=== PATIENT | female | born 1980 | race Caucasian/White ===

== ENCOUNTER 2016-08-14 18:35 | Emergency (ER) | payer BC, OTHER ==
[~2016-08-14] VITALS: Ht 160 cm; Wt 55.8 kg
[~2016-08-14 18:35] MED LIST: PRLSR20 PO; SUCR1TAB29 PO
[2016-08-14 18:38] VITALS: Ht 160 cm; Wt 55.8 kg
[2016-08-14] MEDS ORDERED: ONDANSETRON INJ 2 MG/ML 2 ML VIAL IV STA (19:12)
[2016-08-14] MEDS ORDERED: MoRPHine SULFATE 4 MG/ML 1 ML CARP\\VIAL IV STA (19:12)
[2016-08-14] MEDS ORDERED: SODIUM CHLORIDE 0.9% 1000ML 1,000 ML IV STA ×2 (19:12)
[2016-08-14] MEDS ORDERED: MoRPHine SULFATE 4 MG/ML 1 ML CARP\\VIAL IV PRN (19:15)
[2016-08-14 19:30] LABS: BASO % 0.3 %; BASO ABS # 0.03 K/uL (0-0.2); COMPLETE YES; EOS % 0.8 %; HEMATOCRIT 42.2 % (37-47); IG% 0.2 %; LYMPH % 29.1 %; LYMPH ABS # 2.79 K/uL (1.2-3.4); MEAN CELL VOLUME 83.9 fL (80-100); MEAN CORPUSCULAR HEMOGLOBIN 28.4 pg (25-34); MEAN CORPUSCULAR HGB CONC 33.9 g/dl (32-36); MEAN PLATELET VOLUME 11.7 fL (7.4-10.4); NEUT % 64.6 %; PLATELET COUNT 237 K/uL (130-400); RED BLOOD COUNT 5.03 M/uL (4.2-5.4)
[2016-08-14] MEDS ORDERED: OPTIRAY 320 IV PRN (19:30)
[2016-08-14 19:38] LABS: BUN/CREATININE RATIO 8.8 (10-20); CALCIUM 9.5 mg/dl (8.5-10.1); CREATININE 0.83 mg/dl (0.60-1.20); POTASSIUM 3.5 mmol/L (3.5-5.1)
[2016-08-14 19:39] LABS: PREG INTERNAL NEGATIVE QC NEG CLEAR BACKGROUND; PREG INTERNAL POSITIVE QC POS CONTROL LINE
[2016-08-14] MEDS ORDERED: IBUP-1050 PO (19:39)
[2016-08-14 19:41] LABS: ALB/GLOB RATIO 1.2 (0.9-2)
[2016-08-14 19:43] LABS: URINE APPEARANCE CLEAR (CLEAR); URINE BILIRUBIN NEG (NEG); URINE COLOR YELLOW; URINE NITRITE NEG (NEG); URINE SPECIFIC GRAVITY 1.006 (1.000-1.030); UROBILINOGEN NEG (NEG)
[2016-08-14 19:47] LABS: MANUAL MICROSCOPIC REQUIRED? NO; REVIEW REQ? NO
--- NOTE | 2016-08-14 20:10 | DIAGNOSTIC IMAGING REPORT ---
ABDOMEN AND PELVIS CT WITH IV CONTRAST CT DOSE: 275.00 mGy.cm HISTORY: EVAL R ABD PAIN TECHNIQUE: Multiaxial CT images of the abdomen and pelvis were performed following the use of intravenous contrast. COMPARISON STUDY: None. FINDINGS: The lung bases are clear. The liver, spleen, gallbladder, pancreas, kidneys, and adrenal glands are within normal limits. No bowel wall thickening or obstruction. Pelvis confirms presence of a retroflexed uterus. Several right ovarian cyst measuring 2.0 and 2.8 cm. There is a 1.9 cm left ovarian cyst. Bladder is midline. There is trace amount of free fluid surrounding the right ovary. IMPRESSION: 1. Nonobstructive bowel pattern 2. The appendix is identified in part and appears to be unremarkable. 3. Multicystic right ovary with dimensions as noted with a single cyst of the left ovary. Trace amount of free fluid surrounding the right ovary which may indicate partial cyst rupture. Electronically signed by: Scar Vera M.D. 08/14/2016 8:08 PM Dictated Date/Time: 08/14/2016 8:04 PM
--- NOTE | 2016-08-14 20:49 | EMERGENCY ROOM VISIT NOTE ---
History First contact with patient: 18:42 Chief Complaint: ABDOMINAL PAIN Stated Complaint: ABD PAIN Nursing Triage Summary: Patient c/o right side of abdomen and back yesterday. Pt denies urinary symtoms. Associates nausea and headache. Denies v/d History of Present Illness Patient is a 36-year-old white female who presents emergency department for evaluation of right-sided abdominal pain. She states that she noticed the pain yesterday. It was located low in the right lower quadrant/groin area. The pain was intermittent. It is better when she was laying and sitting still and worse when she was standing and walking. She states that the pain was worse last night, felt better when she woke up this morning. She tried to go about her normal activities throughout the day, but the pain again returned. She states she also began to wrap around more to her right flank. She then noted associated nausea and headache. She does have a history of ovarian cysts and states that initially she thought that she had another cyst. She did take some ibuprofen which helped with her headache. She denies any urinary symptoms. Bowel movements have been regular. Her last menstrual period was 2 weeks ago. She does also note some rectal pressure 2 days ago which has improved. She presently rates her discomfort a 4/10. There is a family history of gallbladder disease and kidney stones. She still has her appendix. Review of Systems Review of systems as per HPI. All other systems reviewed were negative. 10 systems reviewed. Past Medical/Surgical History Medical Problems: (1) Acid reflux (2) Ovarian cyst Surgical Problems: (1) H/O breast implant (2) History of tonsillectomy (3) Hx of wisdom tooth extraction Electronic medical records are reviewed and summarized as above/below. See Problem List. Social History Smoking Status: Never Smoker Alcohol Use: none Marital Status: Housing Status: lives with family Occupation Status: unemployed Current/Historical Medications Scheduled PRN Ibuprofen (Advil), 400 MG PO Q6 PRN for Pain Allergies Coded Allergies: Penicillins (Verified Adverse Reaction, N/V, 03/08/12) Physical Exam Vital Signs Date Time Temp Pulse Resp B/P Pulse Ox O2 Delivery O2 Flow Rate FiO2 08/14/16 20:54 36.7 82 16 114/77 99 08/14/16 20:32 82 16 114/77 99 Room Air 08/14/16 19:28 81 16 119/74 97 Room Air 08/14/16 18:38 36.7 79 16 122/82 98 Room Air Physical Exam CONSTITUTIONAL: Patient is a well-appearing 36-year-old white female who is awake and alert and in no acute distress. EYES: Pupils equal, round, reactive to light and accommodation. EOMs intact without nystagmus. Sclera are anicteric. ENT: Tympanic membranes intact, with normal landmarks. External canals are clear. Oral and nasopharynx are clear. Mucous membranes are moist, no lesions , tongue and gums appear normal. NECK: Supple without lymphadenopathy. No thyromegaly. No meningeal signs. Full active range of motion without discomfort. CARDIOVASCULAR: Regular rate and rhythm, with normal S1 and S2, no murmur or gallop or rub is heard. No carotid bruits auscultated. No JVD. Peripheral pulses easily palpable. RESPIRATORY: Breath sounds equal and clear to auscultation without wheezes, rales, or rhonchi heard. Full and equal chest expansion without accessory muscle use or retractions. ABDOMEN: Bowel sounds are present. Abdomen is soft, nondistended, tender to percussion and palpation in the right lower quadrant, without guarding, rebound or rigidity. INTEGUMENTARY: No lesions or rash, normal skin turgor. LYMPH: No lymphadenopathy. Medical Decision & Procedures ER Provider Diagnostic Interpretation: ABDOMEN AND PELVIS CT WITH IV CONTRAST CT DOSE: 275.00 mGy.cm HISTORY: EVAL R ABD PAIN TECHNIQUE: Multiaxial CT images of the abdomen and pelvis were performed following the use of intravenous contrast. COMPARISON STUDY: None. FINDINGS: The lung bases are clear. The liver, spleen, gallbladder, pancreas, kidneys, and adrenal glands are within normal limits. No bowel wall thickening or obstruction. Pelvis confirms presence of a retroflexed uterus. Several right ovarian cyst measuring 2.0 and 2.8 cm. There is a 1.9 cm left ovarian cyst. Bladder is midline. There is trace amount of free fluid surrounding the right ovary. IMPRESSION: 1. Nonobstructive bowel pattern 2. The appendix is identified in part and appears to be unremarkable. 3. Multicystic right ovary with dimensions as noted with a single cyst of the left ovary. Trace amount of free fluid surrounding the right ovary which may indicate partial cyst rupture. Laboratory Results 08/14/16 18:50 Red Blood Count 5.03, Mean Corpuscular Volume 83.9, Mean Corpuscular Hemoglobin 28.4, Mean Corpuscular Hemoglobin Concent 33.9, Mean Platelet Volume 11.7, Neutrophils (%) (Auto) 64.6, Lymphocytes (%) (Auto) 29.1, Monocytes (%) (Auto) 5.0, Eosinophils (%) (Auto) 0.8, Basophils (%) (Auto) 0.3, Neutrophils # (Auto) 6.20, Lymphocytes # (Auto) 2.79, Monocytes # (Auto) 0.48, Eosinophils # (Auto) 0.08, Basophils # (Auto) 0.03 08/14/16 18:50 Test 08/14/16 18:50 White Blood Count 9.60 K/uL (4.8-10.8) Red Blood Count 5.03 M/uL (4.2-5.4) Hemoglobin 14.3 g/dL (12.0-16.0) Hematocrit 42.2 % (37-47) Mean Corpuscular Volume 83.9 fL (80-100) Mean Corpuscular Hemoglobin 28.4 pg (25-34) Mean Corpuscular Hemoglobin Concent 33.9 g/dl (32-36) Platelet Count 237 K/uL (130-400) Mean Platelet Volume 11.7 fL (7.4-10.4) Neutrophils (%) (Auto) 64.6 % Lymphocytes (%) (Auto) 29.1 % Monocytes (%) (Auto) 5.0 % Eosinophils (%) (Auto) 0.8 % Basophils (%) (Auto) 0.3 % Neutrophils # (Auto) 6.20 K/uL (1.4-6.5) Lymphocytes # (Auto) 2.79 K/uL (1.2-3.4) Monocytes # (Auto) 0.48 K/uL (0.11-0.59) Eosinophils # (Auto) 0.08 K/uL (0-0.5) Basophils # (Auto) 0.03 K/uL (0-0.2) RDW Standard Deviation 42.3 fL (36.4-46.3) RDW Coefficient of Variation 13.8 % (11.5-14.5) Immature Granulocyte % (Auto) 0.2 % Immature Granulocyte # (Auto) 0.02 K/uL (0.00-0.02) Urine Color YELLOW Urine Appearance CLEAR (CLEAR) Urine pH 6.0 (4.5-7.5) Urine Specific [place] 1.006 (1.000-1.030) Urine Protein NEG (NEG) Urine Glucose (UA) NEG (NEG) Urine Ketones NEG (NEG) Urine Occult Blood NEG (NEG) Urine Nitrite NEG (NEG) Urine Bilirubin NEG (NEG) Urine Urobilinogen NEG (NEG) Urine Leukocyte Esterase NEG (NEG) Anion Gap 7.0 mmol/L (3-11) Est Creatinine Clear Calc Drug Dose 77.5 ml/min Estimated GFR () 105.1 Estimated GFR (Non- 90.7 BUN/Creatinine Ratio 8.8 (10-20) Calcium Level 9.5 mg/dl (8.5-10.1) Total Bilirubin 0.4 mg/dl (0.2-1) Aspartate Amino Transf (AST/SGOT) 27 U/L (15-37) Alanine Aminotransferase (ALT/SGPT) 35 U/L (12-78) Alkaline Phosphatase 57 U/L (45-117) Total Protein 8.4 gm/dl (6.4-8.2) Albumin 4.5 gm/dl (3.4-5.0) Globulin 3.9 gm/dl (2.5-4.0) Albumin/Globulin Ratio 1.2 (0.9-2) Lipase 242 U/L (73-393) Human Chorionic Gonadotropin, Qual NEG (NEG) Medications Administered Medications (Trade) Dose Ordered Sig/Haydee Route Start Time Stop Time Status Last Admin Dose Admin Sodium Chloride (Nss 1000ml) 1,000 ml @ 999 mls/hr Q1H1M STAT IV 08/14/16 19:12 08/14/16 20:12 DC 08/14/16 19:25 999 MLS/HR Ondansetron HCl (Zofran Inj) 4 mg NOW STAT IV 08/14/16 19:12 08/14/16 19:16 DC 08/14/16 19:25 4 MG Morphine Sulfate (MoRPHine SULFATE INJ) 4 mg NOW STAT IV 08/14/16 19:12 17 19:16 DC 08/14/16 19:25 4 MG ED Course The patient was seen and assessed as above. Old records were reviewed. IV access was obtained and patient was hydrated with normal saline solution. She was medicated with Zofran 4 mg and morphine 4 mg IV. CBC with differential, CMP , lipase, urinalysis and urine test were performed. Given her right lower quadrant pain, CT scan of the abdomen and pelvis with IV contrast was ordered. Laboratory studies revealed a normal white count at 9600. H&H is 14 and 42, electrolytes, renal functions and liver functions are normal. Lipase is not elevated. Serum hCG is negative. Urinalysis is clear without signs of infection. CT scan of the abdomen and pelvis with IV contrast noted a normal appendix. There was no obstruction or bowel wall thickening. There were 2 cysts noted in the right ovary, measuring 2 and 2.8 cm respectively and a 1.9 cm cyst on the left ovary. There is a trace amount of free fluid surrounding the right ovary, which may represent a partial cyst rupture. All laboratory and diagnostic imaging studies were reviewed with the patient and her . Conservative care measures were discussed. She declined prescription analgesia. She was encouraged to follow-up with her airplane patroller for further care and evaluation. She rated her discomfort a 0/10 at discharge. Differential diagnoses entertained included UTI, pyelonephritis, renal colic, ovarian cyst, ovarian torsion, , ectopic , PID, tubo-ovarian abscess, bowel obstruction, perforation, hernia, among others. Medical Decision See ED Course. Impression Primary Impression: Bilateral ovarian cysts Departure Information Referrals Kina Marcus D.O. (PCP) Patient Instructions My [facility] Additional Instructions DO NOT drive, drink alcohol, operate machinery, or perform dangerous activities today. You were given medications in the ER that can affect your ability to safely function or operate a vehicle. Ibuprofen(Motrin, Advil) may be used for fever or pain. Use 600mg every six hours as needed. Take with food. Avoid using more than 2400mg in a 24 hour period. Do not use 2400mg per day for more than three consecutive days without physician direction. Prolonged inappropriate use can lead to stomach upset or ulcers. This is available over the counter and typically comes in 200mg tablets. (AND/OR) Acetaminophen(Tylenol) may be used for fever or pain. Use 1000mg every eight hours as needed. Avoid using more than 3000mg in a 24 hour period. This is available over the counter. Heating pad to the abdomen as needed for discomfort. Diet as tolerated. Continue current medications. Once your stomach is settled start with a clear liquid diet (jello, soup broth, etc.) and then advance as tolerated. You should avoid full, heavy meals for about 24 hrs from the time your symptoms resolved. Return to the ER immediately for worsening or persistent abdominal pain, vomiting, fevers, chest pains, difficulty breathing, black or bloody stools, worsening of your condition, or as needed. Follow up with your NEWSPAPER JOURNALIST for a recheck of your current condition.
[2016-08-14 20:54] VITALS: BP 114/77; PULSE 82; TEMP 36.7; O2SAT 99
== END 2016-08-14 20:55 | disposition home or self-care (01) ==
LOC: C.EDB 18:37 → C.EDA 20:55
DX: N83.201 Unspecified ovarian cyst, right side (principal); N83.202 Unspecified ovarian cyst, left side; K21.9 Gastro-esophageal reflux disease without esophagitis; Z88.0 Allergy status to penicillin; Z98.890 Other specified postprocedural states

== ENCOUNTER 2017-01-01 10:08 | Emergency (ER) | payer OTHER ==
[~2017-01-01] VITALS: Ht 160 cm; Wt 53.0 kg
[~2017-01-01 10:08] MED LIST changes: +IBUP-1050 PO; -PRLSR20 PO; -SUCR1TAB29 PO
[2017-01-01 10:12] VITALS: TEMP 36.7; Ht 160 cm; Wt 53.0 kg
[2017-01-01 10:35] VITALS: O2SAT 100
[2017-01-01] MEDS ORDERED: KETOROLAC TROMETHAMINE 30 MG/ML VIAL IV STA (10:47)
[2017-01-01] MEDS ORDERED: SODIUM CHLORIDE 0.9% 1000ML 1,000 ML IV STA (10:47)
[2017-01-01] MEDS ORDERED: ONDANSETRON INJ 2 MG/ML 2 ML VIAL IV STA (10:47)
--- NOTE | 2017-01-01 10:55 | EMERGENCY ROOM VISIT NOTE ---
History Report prepared by Kendy: Rut Garcia Under the Supervision of: Dr. Mikhail Noe M.D. First contact with patient: 10:44 Chief Complaint: CHEST PAIN Stated Complaint: BACK AND CHEST PAIN ARM TINGLING Nursing Triage Summary: chest pain started on friday night woke from a sleep with sweat and pain in left arm pt c/o pain starts in the back and runs to the front c/o left arm numbness History of Present Illness The patient is a 36 year old female who presents to the Emergency Room with complaints of intermittent chest pain that began Friday. She currently rates her discomfort as a 4/10 in severity. The patient states that around 0230 in the morning on Friday she was woken with left sided back pain that radiated into her left chest, left neck, and down her left arm. She additionally reports left arm numbness. The patient states that she developed central abdominal pain during this as well. She states that she was diaphoretic and nauseous. The patient states that the symptoms lasted one hour and then they slowly went away. She states that she woke up and experienced pain again, but not as severe. The patient states that it is worsened with lying flat and with ambulation. She denies ever having pain like this in the past. The patient denies any history of gallstones or a cholecystectomy. She states that she has used Ibuprofen. The patient denies any history of blood clots or cancer. She denies being on any hormones or control. The patient denies any recent travel or chance of . She denies any fever, chills, cough, congestion , rhinorrhea, or urinary symptoms. Source of History: patient Onset: Friday Position: chest Symptom Intensity: 4/10 Timing: intermittent Modifying Factors (Worsening): movement, other (lying flat) Associated Symptoms: + diaphoresis, + neck pain, + nausea, + abdominal pain , + back pain, No fevers, No chills, No cough, No urinary symptoms Review of Systems See HPI for pertinent positives and negatives. A total of ten systems were reviewed and were otherwise negative. Past Medical & Surgical Medical Problems: (1) Acid reflux (2) Ovarian cyst Surgical Problems: (1) H/O breast implant (2) History of tonsillectomy (3) Hx of wisdom tooth extraction Family History Cancer Gallbladder disease Kidney disease Kidney stones Social History Smoking Status: Never Smoker Smokeless Tobacco Use: No Alcohol Use: none Marital Status: Housing Status: lives with family Occupation Status: unemployed Current/Historical Medications No Active Prescriptions or Reported Meds Allergies Coded Allergies: Penicillins (Verified Adverse Reaction, Unknown, N/V, 01/01/17) Physical Exam Vital Signs Date Time Temp Pulse Resp B/P (MAP) Pulse Ox O2 Delivery O2 Flow Rate FiO2 01/01/17 16:41 67 20 103/65 98 Room Air 01/01/17 15:30 68 18 104/65 96 Room Air 01/01/17 13:52 72 13 111/80 Room Air 01/01/17 13:30 70 01/01/17 12:00 76 15 102/66 98 Room Air 01/01/17 11:08 62 20 108/79 99 Room Air 01/01/17 10:36 100 Room Air 01/01/17 10:35 100 Room Air 01/01/17 10:31 73 01/01/17 10:12 36.7 91 20 135/88 100 Room Air Physical Exam GENERAL: Awake, alert, well-appearing, in no distress HENT: Normocephalic, atraumatic. Dry mucous membranes. EYES: Normal conjunctiva. Sclera non-icteric. NECK: Supple. No nuchal rigidity. FROM. No JVD. RESPIRATORY: Clear to auscultation. CARDIAC: Regular rate, normal rhythm. Extremities warm and well perfused. Pulses equal. ABDOMEN: Soft, non-distended. Mild epigastric right upper quadrant tenderness to palpation, positive Graham sign.. No rebound or guarding. No masses. RECTAL: Deferred. MUSCULOSKELETAL: Chest examination reveals no tenderness. The back is symmetrical on inspection without obvious abnormality. There is no CVA tenderness to palpation. No joint edema. LOWER EXTREMITIES: Calves are equal size bilaterally and non-tender. No edema. No discoloration. NEURO: Normal sensorium. No sensory or motor deficits noted. SKIN: No rash or jaundice noted. Medical Decision & Procedures ER Provider Diagnostic Interpretation: Radiology results as stated below per my review and radiologist interpretation: CHEST ONE VIEW PORTABLE CLINICAL HISTORY: Chest pain. COMPARISON STUDY: Chest CT May 28, 2010. FINDINGS: Lung volumes are normal. There is no pneumothorax or pleural effusion. Symmetric hazy opacities projecting over each lung are due to silicone breast implants. There is no evidence of pulmonary edema. Pulmonary vascularity is normal. Cardiomediastinal silhouette is normal. IMPRESSION: No acute cardiopulmonary findings. Electronically signed by: Jose Coffman M.D. 01/01/2017 11:09 AM Dictated Date/Time: 01/01/2017 11:08 AM Cardiac ultrasound reveals no pericardial fluid, grossly normal LV and RV size and function. Gallbladder ultrasound is limited, gallbladder difficult to visualize secondary to possible gallstones. ABDOMINAL ULTRASOUND, RIGHT UPPER QUADRANT HISTORY: Right upper quadrant abdominal pain - + Chavis's sign. COMPARISON: Abdomen and pelvis CT 08/14/2016. FINDINGS: Pancreas: The pancreas demonstrates a normal echotexture. Liver: Unremarkable. Gallbladder: No gallbladder wall thickening. No gallstones. Negative sonographic Chavis's sign. CBD: 4 mm. Right kidney: No hydronephrosis. IMPRESSION: No significant abnormality identified within the right upper quadrant. Electronically signed by: Manav Nunez M.D. 01/01/2017 2:52 PM Dictated Date/Time: 01/01/2017 2:51 PM Laboratory Results 01/01/17 10:28 Red Blood Count 4.95, Mean Corpuscular Volume 86.1, Mean Corpuscular Hemoglobin 28.9, Mean Corpuscular Hemoglobin Concent 33.6, Mean Platelet Volume 11.3, Neutrophils (%) (Auto) 60.1, Lymphocytes (%) (Auto) 33.1, Monocytes (%) (Auto) 4.9, Eosinophils (%) (Auto) 1.4, Basophils (%) (Auto) 0.3, Neutrophils # (Auto) 3.95, Lymphocytes # (Auto) 2.17, Monocytes # (Auto) 0.32, Eosinophils # (Auto) 0.09, Basophils # (Auto) 0.02 01/01/17 10:28 Test 01/01/17 10:28 01/01/17 10:30 White Blood Count 6.56 K/uL (4.8-10.8) Red Blood Count 4.95 M/uL (4.2-5.4) Hemoglobin 14.3 g/dL (12.0-16.0) Hematocrit 42.6 % (37-47) Mean Corpuscular Volume 86.1 fL (80-100) Mean Corpuscular Hemoglobin 28.9 pg (25-34) Mean Corpuscular Hemoglobin Concent 33.6 g/dl (32-36) Platelet Count 247 K/uL (130-400) Mean Platelet Volume 11.3 fL (7.4-10.4) Neutrophils (%) (Auto) 60.1 % Lymphocytes (%) (Auto) 33.1 % Monocytes (%) (Auto) 4.9 % Eosinophils (%) (Auto) 1.4 % Basophils (%) (Auto) 0.3 % Neutrophils # (Auto) 3.95 K/uL (1.4-6.5) Lymphocytes # (Auto) 2.17 K/uL (1.2-3.4) Monocytes # (Auto) 0.32 K/uL (0.11-0.59) Eosinophils # (Auto) 0.09 K/uL (0-0.5) Basophils # (Auto) 0.02 K/uL (0-0.2) RDW Standard Deviation 43.0 fL (36.4-46.3) RDW Coefficient of Variation 13.8 % (11.5-14.5) Immature Granulocyte % (Auto) 0.2 % Immature Granulocyte # (Auto) 0.01 K/uL (0.00-0.02) Anion Gap 7.0 mmol/L (3-11) Est Creatinine Clear Calc Drug Dose 77.5 ml/min Estimated GFR () 105.1 Estimated GFR (Non- 90.7 BUN/Creatinine Ratio 9.8 (10-20) Calcium Level 9.5 mg/dl (8.5-10.1) Total Bilirubin 0.4 mg/dl (0.2-1) Direct Bilirubin 0.1 mg/dl (0-0.2) Aspartate Amino Transf (AST/SGOT) 9 U/L (15-37) Alanine Aminotransferase (ALT/SGPT) 14 U/L (12-78) Alkaline Phosphatase 50 U/L (45-117) Troponin I < 0.015 ng/ml (0-0.045) Total Protein 7.7 gm/dl (6.4-8.2) Albumin 3.8 gm/dl (3.4-5.0) Lipase 251 U/L (73-393) Urine Test NEG (NEG) Laboratory results reviewed by me Medications Administered Medications (Trade) Dose Ordered Sig/Haydee Route Start Time Stop Time Status Last Admin Dose Admin Sodium Chloride 1,000 ml @ 999 mls/hr Q1H1M STAT IV 01/01/17 10:47 01/01/17 11:47 DC 01/01/17 10:47 999 MLS/HR Ketorolac Tromethamine (Toradol Inj) 30 mg NOW STAT IV 01/01/17 10:47 01/01/17 10:50 DC 01/01/17 11:06 30 MG Ondansetron HCl (Zofran Inj) 4 mg NOW STAT IV 01/01/17 10:47 01/01/17 10:51 DC 01/01/17 11:05 4 MG Famotidine 20 mg/ Dextrose 102 ml @ 200 mls/hr Q12H IV 01/01/17 15:00 01/01/17 17:49 DC 01/01/17 15:17 200 MLS/HR Lidocaine HCl (Viscous Lidocaine 2% Soln) 20 ml STK-MED ONCE .ROUTE 01/01/17 15:15 01/01/17 15:16 DC 01/01/17 15:18 20 ML Al Hydroxide/Mg Hydroxide (Maalox Susp) 30 ml STK-MED ONCE .ROUTE 01/01/17 15:15 01/01/17 15:16 DC 01/01/17 15:15 30 ML ECG Indication: chest pain Rate (beats per minute): 80 Rhythm: normal sinus Findings: no acute ischemic change, other (normal intervals, no SC depressions) ED Course 1045: The patient was evaluated in room C1B. A complete history and physical exam was performed. 1047: Ordered Zofran Inj 4 mg IV, Toradol Inj 30 mg IV, Sodium Chloride 1000 ml @ 999 mls/hr IV. 1251: I performed an ultrasound on the patient at this time. See diagnostic testing for further detail Medical Decision Triage Nursing notes reviewed. The patient's presentation and history were concerning for Pericarditis, myocarditis, pneumonia, bronchitis, gastritis, cholecystitis, gall stones, musculoskeletal strain. I reviewed the patient's past medical history, medications, and the nursing notes as described above. Patient is a 36-year-old woman who presents emergency Department with the complaint of constant chest and shoulder pain for the past several days, which she says waxes and wanes but never goes away per history of present illness. Arrival of the patient is in no acute distress. Afebrile stable vital signs. Exam the patient has mild epigastric tenderness to palpation. Additionally, has positive Chavis sign in the right upper quadrant. EKG unremarkable without any SC depressions or ST elevations and negative Spotick sign, thus pericarditis not likely. Troponin negative in the setting of constant pain for several days. ACS not likely. Limited bedside echo negative for pericardial effusion and otherwise demonstrated grossly normal LV/RV function and size. Chest x-ray unremarkable. Patient is PERC negative making PE not likely. Since reported pain in his upper chest and upper left back and patient denies any urinary symptoms, renal stone unlikely. LFTs also unremarkable without any evidence of obstruction. However bedside ultrasound with difficulty identifying gallbladder, thus formal ultrasound ordered to further characterize. Formal US unremarkable. Patient given pepcid and GI cocktail for possible gastritis etiology however without effect. Unclear etiology for patient 's sx at this time. However, relevant emergent etiologies ruled out at this time. Findings and plan for follow-up d/w patient. Patient agreeable and d/c'd per discharge instructions. Medication Reconcilliation Current Medication List: was personally reviewed by me Impression Primary Impression: Chest pain Scribe Attestation The scribe's documentation has been prepared under my direction and personally reviewed by me in its entirety. I confirm that the note above accurately reflects all work, treatment, procedures, and medical decision making performed by me. Departure Information Dispostion Home / Self-Care Prescriptions No Active Prescriptions or Reported Meds Referrals No Doctor, Assigned (PCP) Patient Instructions Chest Pain - [facility], [facility] Additional Instructions Please follow up with your primary care physician in the next 1-3 days for re- evaluation. Your symptoms may be due to musculoskeletal strain. Otherwise, your exam, EKG, chest x-ray, and ultrasounds did not show signs of an emergent condition at this time. Take acetaminophen and ibuprofen as needed for pain. Return to the emergency department for worsening symptoms as described in the accompanying instructions.
[2017-01-01 11:00] LABS: BASO % 0.3 %; BASO ABS # 0.02 K/uL (0-0.2); COMPLETE YES; EOS % 1.4 %; HEMATOCRIT 42.6 % (37-47); IG% 0.2 %; LYMPH % 33.1 %; LYMPH ABS # 2.17 K/uL (1.2-3.4); MEAN CELL VOLUME 86.1 fL (80-100); MEAN CORPUSCULAR HEMOGLOBIN 28.9 pg (25-34); MEAN CORPUSCULAR HGB CONC 33.6 g/dl (32-36); MEAN PLATELET VOLUME 11.3 fL (7.4-10.4); MONO % 4.9 %; NEUT % 60.1 %; PLATELET COUNT 247 K/uL (130-400); RED BLOOD COUNT 4.95 M/uL (4.2-5.4); WHITE BLOOD COUNT 6.56 K/uL (4.8-10.8)
--- NOTE | 2017-01-01 11:10 | DIAGNOSTIC IMAGING REPORT ---
CHEST ONE VIEW PORTABLE CLINICAL HISTORY: Chest pain. COMPARISON STUDY: Chest CT May 28, 2010. FINDINGS: Lung volumes are normal. There is no pneumothorax or pleural effusion. Symmetric hazy opacities projecting over each lung are due to silicone breast implants. There is no evidence of pulmonary edema. Pulmonary vascularity is normal. Cardiomediastinal silhouette is normal. IMPRESSION: No acute cardiopulmonary findings. Electronically signed by: Jose Coffman M.D. 01/01/2017 11:09 AM Dictated Date/Time: 01/01/2017 11:08 AM
[2017-01-01 11:16] LABS: ALKALINE PHOSPHATASE 50 U/L (45-117)
[2017-01-01 11:21] LABS: POTASSIUM 4.4 mmol/L (3.5-5.1); SODIUM 139 mmol/L (136-145)
[2017-01-01 11:27] LABS: AST/SGOT 9 U/L (15-37)
[2017-01-01 11:29] LABS: ALT/SGPT 14 U/L (12-78); BLOOD UREA NITROGEN 8 mg/dl (7-18); BUN/CREATININE RATIO 9.8 (10-20); CALCIUM 9.5 mg/dl (8.5-10.1); CARBON DIOXIDE 27 mmol/L (21-32); CHLORIDE 105 mmol/L (98-107); CREATININE 0.83 mg/dl (0.60-1.20); GLUCOSE 89 mg/dl (70-99)
--- NOTE | 2017-01-01 14:54 | DIAGNOSTIC IMAGING REPORT ---
ABDOMINAL ULTRASOUND, RIGHT UPPER QUADRANT HISTORY: Right upper quadrant abdominal pain - + Chavis's sign. COMPARISON: Abdomen and pelvis CT 08/14/2016. FINDINGS: Pancreas: The pancreas demonstrates a normal echotexture. Liver: Unremarkable. Gallbladder: No gallbladder wall thickening. No gallstones. Negative sonographic Chavis's sign. CBD: 4 mm. Right kidney: No hydronephrosis. IMPRESSION: No significant abnormality identified within the right upper quadrant. Electronically signed by: Manav Nunez M.D. 01/01/2017 2:52 PM Dictated Date/Time: 01/01/2017 2:51 PM
[2017-01-01] MEDS ORDERED: GI COCKTAIL PO STA (14:57)
[2017-01-01] MEDS ORDERED: FAMOTIDINE IV INJ 20 MG in DEXTROSE 5% 100ML 100 ML IV SCH (15:00)
[2017-01-01] MEDS ORDERED: ALUMINUM/MAGNESIUM SUSP 30 ML UDC ONE (15:15)
[2017-01-01] MEDS ORDERED: LIDOCAINE HCL 2% VISC SOLN 20 ML UDC ONE (15:15)
[2017-01-01 16:41] VITALS: BP 103/65; PULSE 67; O2SAT 98
== END 2017-01-01 16:53 | disposition home or self-care (01) ==
LOC: C.EDB 10:10 → C.EDC 16:53
DX: R07.9 Chest pain, unspecified (principal); K21.9 Gastro-esophageal reflux disease without esophagitis; Z80.9 Family history of malignant neoplasm, unspecified; Z84.1 Family history of disorders of kidney and ureter